=== PATIENT | male | born 1975 | race Caucasian/White ===

== ENCOUNTER 2016-12-28 11:25 | Emergency (ER) | payer OTHER ==
[2016-12-28 12:21] LABS: BASO # 0.1 10_X3_uL (0.0-0.1); BASO % 0.8 % (0.2-1.2); EOS # 0.3 10_X3_uL (0.0-0.5); EOS % 3.3 % (0.8-7.0); GRAN # 4.3 10_X3_uL (1.8-5.4); GRAN % 56.8 % (34.0-67.9); HEMATOCRIT 44.2 % (40-51); HEMOGLOBIN 14.7 g/dL (13.7-17.5); LYMPH % 26.4 % (21.8-53.1); MEAN CORPUSCULAR HGB CONC 33.3 g/dL (32.0-36.0); MEAN CORPUSCULAR VOLUME 93.2 fL (79-92); MEAN PLATELET VOLUME 9.5 fl (7.5-11.5); MONO % 12.7 % (5.3-12.2); PLATELET COUNT 223 x10_3/uL (163-337); RED BLOOD COUNT 4.74 x10_6/uL (4.6-6.1); RED CELL DISTRIBUTION WIDTH 13.4 % (11.6-14.4); WHITE BLOOD COUNT 7.6 x10_3/uL (4.2-9.1)
== END 2016-12-28 15:22 | disposition home or self-care (01) ==
LOC: ER 11:25
PROVIDERS: General Practice
DX: M48.56XA Collapsed vertebra, not elsewhere classified, lumbar region, initial encounter for fracture (principal); M51.36 Other intervertebral disc degeneration, lumbar region; M48.06 Spinal stenosis, lumbar region; G62.9 Polyneuropathy, unspecified; F17.210 Nicotine dependence, cigarettes, uncomplicated; Z79.899 Other long term (current) drug therapy
CPT/HCPCS: 36415; 72128; 72131; 85025; 99283-25